=== PATIENT | female | born 1950 | race Caucasian/White ===

== ENCOUNTER 2017-07-09 09:16 | Inpatient (IN) ==
[2017-07-09] MEDS ORDERED: BISACODYL 5 MG TABLET PO PRN (09:43)
[2017-07-09] MEDS ORDERED: ACETAMINOPHEN 325 MG TABLET PO PRN (09:43)
[2017-07-09] MEDS ORDERED: ONDANSETRON 4 MG/2 ML VIAL IV PRN (09:43)
[2017-07-09] MEDS ORDERED: MORPHINE 2 MG/1 ML SYRINGE IV PRN (09:43)
[2017-07-09] MEDS ORDERED: MAGNESIUM SULF RIDER 2 GM in PREMIX 1 EACH IV PRN (09:43)
[2017-07-09] MEDS ORDERED: DOCUSATE SODIUM 100 MG CAPSULE PO PRN (09:43)
[2017-07-09] MEDS ORDERED: MAGNESIUM SULF RIDER 4 GM in PREMIX 1 EACH IV PRN (09:43)
[2017-07-09] MEDS ORDERED: ZALEPLON 5 MG CAPSULE PO PRN (09:43)
[2017-07-09 12:21] LABS: Basophils % 0.5 % (0.0-0.8); Eosinophils # 0.1 10*3/uL (0.0-0.87); Eosinophils % 0.8 % (0.00-10.9); Hematocrit 39.9 VOL% (35.7-47.0); Hemoglobin 13.6 GM/DL (12.0-16.0); Immature Granulocytes % 0.4 %; Immature Granulocytes Absolute 0.03 #; Lymphocytes # 1.8 10*3/uL (1.4-4.0); Lymphocytes % 23.6 % (21.3-54.2); Mean Corpuscular HGB Conc 34.1 GM/DL (32-36); Mean Corpuscular Hemoglobin 30 PG (27-34); Mean Corpuscular Volume 88.5 FL (87-102); Mean Platelet Volume 11.1 FL (9.6-12.0); Monocytes # 0.6 10*3/uL (0.11-0.8); Monocytes % 8.3 % (1.7-12.7); Neutrophils # 5.1 10*3/uL (1.4-7.4); Neutrophils % 66.4 % (38.7-73.9); Platelet Count 235 T/CUMM (130-400); Red Blood Count 4.51 MC/CUMM (3.8-5.5); Red Cell Distribution Width 12.8 % (9.3-17.3); White Blood Count 7.7 T/CUMM (4-12)
[2017-07-09 12:58] LABS: Alanine Aminotransferase 22 U/L (13-56); Albumin 3.7 G/DL (3.4-5.0); Alkaline Phosphatase 86 U/L (45-117); Aspartate Amino Transferase 22 U/L (0-37); Bilirubin,Total < 0.39 MG/DL (0.2-1.0); Blood Urea Nitrogen 17 MG/DL (7-18); Calcium 8.6 MG/DL (8.5-10.1); Glucose 82 MG/DL (74-106); Osmolality,Calculated 281.3 MOS/KG (273-304); Potassium 3.7 MMOL/L (3.5-5.1); Sodium 141 MMOL/L (136-145); Thyroid Stimulating Hormone 0.972 uIU/ml (0.358-3.74); Total Protein 6.9 G/DL (6.4-8.3)
[2017-07-09] MEDS ORDERED: diphenhydrAMINE CAP 25 MG CAPSULE PO PRN (14:28)
[2017-07-09] MEDS ORDERED: guaiFENesin/DM ER 600-30 MG TABLET PO PRN (14:28)
[2017-07-09] MEDS: DICYCLOMINE 10 MG CAPSULE PO SCH ×2 (17:03→20:52)
[2017-07-09] MEDS: PANTOPRAZOLE 40 MG TABLET PO SCH (17:03)
[2017-07-09] MEDS ORDERED: DIAZEPAM 2 MG TABLET PO PRN (17:17)
[2017-07-09 17:57] LABS: Apearance,Urine CLEAR (Clear); Bilirubin,Urine Negative (Negative); Blood, Urine Small mg/dL (Negative); Glucose,Urine (UA) Negative (Negative); Ketones,Urine Negative (Negative); Mucus,Urine Occasional /LPF (Occasional); Nitrite,Urine Negative (Negative); Protein,Urine Negative; RBC,Urine 1 /HPF (0-4); Urine Color Yellow (Yellow); Urine Specific Gravity 1.011 (1.001-1.035); Urine Urobilinogen < 2.0 EU/DL (0.2-1.0); WBC,Urine 2 /HPF (0-6)
[2017-07-09] MEDS: CENTRUM PO SCH (20:52)
[2017-07-09] MEDS: APIXABAN 5 MG TABLET PO SCH (20:53)
[2017-07-09] MEDS: SOTALOL 80 MG TABLET PO SCH ×2 (22:36→23:06)
[2017-07-10 05:02] LABS: Basophils % 0.5 % (0.0-0.8); Eosinophils # 0.1 10*3/uL (0.0-0.87); Eosinophils % 1.2 % (0.00-10.9); Hematocrit 37.4 VOL% (35.7-47.0); Hemoglobin 12.2 GM/DL (12.0-16.0); Immature Granulocytes % 0.4 %; Immature Granulocytes Absolute 0.03 #; Lymphocytes % 26.5 % (21.3-54.2); Mean Corpuscular HGB Conc 32.6 GM/DL (32-36); Mean Corpuscular Hemoglobin 29 PG (27-34); Mean Corpuscular Volume 90.1 FL (87-102); Mean Platelet Volume 11.1 FL (9.6-12.0); Monocytes # 0.6 10*3/uL (0.11-0.8); Monocytes % 8.5 % (1.7-12.7); Neutrophils # 4.7 10*3/uL (1.4-7.4); Neutrophils % 62.9 % (38.7-73.9); Platelet Count 192 T/CUMM (130-400); Red Blood Count 4.15 MC/CUMM (3.8-5.5); Red Cell Distribution Width 12.8 % (9.3-17.3); White Blood Count 7.4 T/CUMM (4-12)
[2017-07-10 05:36] LABS: Albumin 3.1 G/DL (3.4-5.0); Bilirubin,Total 0.6 MG/DL (0.2-1.0); Calcium 8.5 MG/DL (8.5-10.1); Osmolality,Calculated 286.8 MOS/KG (273-304); Potassium 3.8 MMOL/L (3.5-5.1)
[2017-07-10] MEDS: SOTALOL 80 MG TABLET PO SCH ×2 (08:52→21:16)
[2017-07-10] MEDS: CENTRUM PO SCH ×2 (08:52→21:17)
[2017-07-10] MEDS: APIXABAN 5 MG TABLET PO SCH ×2 (08:53→21:19)
[2017-07-10] MEDS: DICYCLOMINE 10 MG CAPSULE PO SCH ×4 (08:54→21:17)
[2017-07-10] MEDS: POTASSIUM CHLORIDE 10 MEQ TABLET PO SCH (08:54)
[2017-07-10] MEDS: PANTOPRAZOLE 40 MG TABLET PO SCH (08:55)
[2017-07-10] MEDS: ASPIRIN EC 81 MG TABLET PO SCH (08:55)
[2017-07-10] MEDS ORDERED: DILTIAZEM CD 120 MG CAPSULE PO SCH (09:00)
[2017-07-10] MEDS ORDERED: BIOTIN PO SCH (09:00)
[2017-07-10] MEDS: ENALAPRIL 2.5 MG TABLET PO SCH (09:08)
[2017-07-10] MEDS ORDERED: SOTALOL 80 MG TABLET PO SCH (12:11)
[2017-07-10] MEDS: ASCORBIC ACID 500 MG TABLET PO SCH ×2 (14:44→21:17)
[2017-07-10] MEDS: DILTIAZEM 30 MG TABLET PO SCH (21:18)
[2017-07-11 08:32] VITALS: BP 108/65
[2017-07-11] MEDS: CENTRUM PO SCH (08:43)
[2017-07-11] MEDS: DILTIAZEM 30 MG TABLET PO SCH (08:43)
[2017-07-11] MEDS: ENALAPRIL 2.5 MG TABLET PO SCH (08:43)
[2017-07-11] MEDS: SOTALOL 80 MG TABLET PO SCH (08:43)
[2017-07-11] MEDS: ASPIRIN EC 81 MG TABLET PO SCH (08:43)
[2017-07-11] MEDS: APIXABAN 5 MG TABLET PO SCH (08:44)
[2017-07-11] MEDS: DICYCLOMINE 10 MG CAPSULE PO SCH (08:44)
[2017-07-11] MEDS: ASCORBIC ACID 500 MG TABLET PO SCH (08:44)
[2017-07-11] MEDS: PANTOPRAZOLE 40 MG TABLET PO SCH (08:44)
[2017-07-11] MEDS: POTASSIUM CHLORIDE 10 MEQ TABLET PO SCH (08:44)
[2017-07-11] MEDS ORDERED: FUROSEMIDE 20 MG TABLET PO SCH (09:00)
== END 2017-07-11 10:55 | disposition home or self-care (01) | DRG 310 ==
LOC: N.TELES 11:03
PROVIDERS: ADMIT Internal Medicine Cardiovascular Disease; ATTEND Internal Medicine Cardiovascular Disease